=== PATIENT | male | born 1945 | race Caucasian/White ===

== ENCOUNTER 2018-04-18 11:21 | Outpatient (REF) | payer MEDICARE, BC, SELFPAY ==
[2018-04-18 22:25] LABS: Anion Gap 9.1 mmol/L (3-11); BUN 21 mg/dL (7-18); CO2 27.9 mmol/L (21.0-32.0); CREATININE 1.17 mg/dL (0.70-1.30); Calcium 9.3 mg/dL (8.5-10.1); Chloride 105 mmol/L (98-107); Glucose 110 mg/dL (70-100); Potassium 4.2 mmol/L (3.5-5.1); Sodium 142 mmol/L (136-145)
== END 2018-04-18 11:41 ==
LOC: NCHCN 11:21
PROVIDERS: PCP Internal Medicine; Visit Provider Internal Medicine
DX: I10 Essential (primary) hypertension (principal); K21.9 Gastro-esophageal reflux disease without esophagitis; M45.9 Ankylosing spondylitis of unspecified sites in spine
CPT/HCPCS: 80048

== ENCOUNTER 2018-04-20 13:44 | Outpatient (REF) | payer MEDICARE, BC, SELFPAY ==
--- NOTE | 2018-04-20 11:10 | SKI_PTH ---
PATIENT: ANDREAS MCNEAL LOC: [facility] U#:[id number] AGE/SX: 73/M ROOM: RE04/20/[address]: Melani Robertson : 1945 BED: DIS: 04/20/2018 SPEC #: [id number] RECD: 04/23/18 11:47 STATUS: KARYN REQ #: [id number] MOON: 04/20/18 11:[address]: Melani Robertson DEPT: Surgical Specimen RECD BY: Urvashi Zhou ENTERED: 04/23/18 11:47 SP TYPE: SKI OTHR DR: New Odonnell Tissues: 1 - SKIN BIOPSY(SHAVE/PUNCH) Procedures: SKIN LEVEL 4 Comments: [id number]
== END 2018-04-20 14:04 ==
LOC: NCHCN 13:44
PROVIDERS: PCP Internal Medicine; Visit Provider Internal Medicine
DX: L82.1 Other seborrheic keratosis (principal)
CPT/HCPCS: 88305

== ENCOUNTER 2019-04-10 17:34 | Outpatient (REF) | payer MEDICARE, BC, SELFPAY | END 2019-04-10 17:54 | LOC: NCHCN 17:34 | PROVIDERS: PCP Internal Medicine; Visit Provider Internal Medicine | DX: I10 Essential (primary) hypertension (principal) | CPT/HCPCS: 80048 ==

== ENCOUNTER 2019-04-11 15:19 | Outpatient (REF) | payer MEDICARE, BC, SELFPAY ==
[2019-04-11 21:42] LABS: Anion Gap 6.4 mmol/L (3-11); BUN 21 mg/dL (7-18); CO2 30.6 mmol/L (21.0-32.0); CREATININE 1.18 mg/dL (0.70-1.30); Calcium 8.7 mg/dL (8.5-10.1); Chloride 107 mmol/L (98-107); Glucose 93 mg/dL (70-100); Potassium 4.6 mmol/L (3.5-5.1); Sodium 144 mmol/L (136-145)
== END 2019-04-11 15:39 ==
LOC: NCHCN 15:19
PROVIDERS: PCP Internal Medicine; Visit Provider Internal Medicine
DX: I10 Essential (primary) hypertension (principal)
CPT/HCPCS: 80048